=== PATIENT | female | born 1965 ===

== ENCOUNTER 2017-08-04 15:11 | Emergency (ER) | payer OTHER ==
[2017-08-04 15:23] VITALS: BMI 27.3
[2017-08-04 15:24] VITALS: RESP 18; TEMP 97.7
[2017-08-04] MEDS ORDERED: Naproxen 550 mg Tab PO STA (15:56)
[2017-08-04] MEDS ORDERED: Naproxen 550 mg Tab PO ONE (16:05)
--- NOTE | 2017-08-04 16:34 | C.PDOC ---
History Of Present Illness 51 year old female presents to the ED for evaluation of left hand pain for the last 3 days. Patient reports that pain is in same area that she had a laceration , infection, and repair 2 months ago. She states that last time she went to clinic she was told to get an MRI done but she reports that she did not follow up for MRI. She has not taken anything for pain. Time Seen by Provider: 08/04/17 15:35 Chief Complaint (Nursing): Finger,Hand,&Wrist History Per: Patient History/Exam Limitations: no limitations Onset/Duration Of Symptoms: Days Current Symptoms Are (Timing): Still Present Past Medical History Reviewed: Historical Data, Nursing Documentation, Vital Signs Vital Signs: Last Vital Signs Temp 97.7 F 08/04/17 16:52 Pulse 60 08/04/17 16:52 Resp 18 08/04/17 16:52 BP 103/67 08/04/17 16:52 Pulse Ox 97 08/04/17 16:52 - Medical History PMH: Seizures (epilepsy) Denies: Chronic Kidney Disease Family History: States: Unknown Family Hx - Social History Hx Tobacco Use: No Hx Alcohol Use: No Hx Substance Use: No - Immunization History Hx Tetanus Toxoid Vaccination: No Hx Influenza Vaccination: No Hx Pneumococcal Vaccination: No Review Of Systems Constitutional: Negative for: Fever Musculoskeletal: Positive for: Hand Pain Physical Exam - Physical Exam Appears: Non-toxic, No Acute Distress Skin: Normal Color, Warm, Dry Head: Atraumatic, Normacephalic Extremity: Normal ROM, Tenderness (left palm), No Swelling, No Other (No erythema ) Neurological/Psych: Oriented x3, Normal Speech ED Course And Treatment O2 Sat by Pulse Oximetry: 99 Medical Decision Making Medical Decision Making: Impression: hand pain Plan: * Naproxen Progress: Patient feeling better. Will discharge home for follow up with PCP. Disposition Counseled Patient/Family Regarding: Need For Followup, Rx Given - Disposition Referrals: Melanie Mccurdy MD [Staff Provider] - Disposition: HOME/ ROUTINE Disposition Time: 16:55 Condition: STABLE Additional Instructions: Por favor, tome medicamentos segn sea necesario para el dolor y prasanth un seguimiento en la clnica Prescriptions: Naproxen [Naprosyn] 1 tab PO BID PRN #25 tab PRN Reason: Pain Instructions: Arthralgia (ED) Forms: [facility] (Danish), Work Excuse - POA Present On Arrival: None - Clinical Impression Clinical Impression: Hand pain - Scribe Statement The provider has reviewed the documentation as recorded by the Scribe Ze Allred
[2017-08-04 16:53] VITALS: BP 103/67; PULSE 60
[2017-08-04 20:59] VITALS: O2SAT 99
== END 2017-08-04 17:00 | disposition home or self-care (01) ==
LOC: C.ER 15:11
DX: M79.642 Pain in left hand (principal)

== ENCOUNTER 2017-12-29 20:21 | Emergency (ER) | payer OTHER ==
[2017-12-29 20:21] VITALS: BMI 29.9
[2017-12-29 20:45] VITALS: TEMP 99.7
[2017-12-29] MEDS ORDERED: Sodium Chloride 0.9% 1,000 ML IV ONE (21:01)
[2017-12-29] MEDS ORDERED: Sodium Chloride 0.9% 1,000 ML ONE (21:14)
[2017-12-29 21:18] LABS: BASO % 0.4 % (0.0-2.0); EOS % 0.1 % (0.0-4.0); HEMOGLOBIN 13.1 g/dL (11.0-16.0); LYMPH # 1.5 K/uL (1.0-4.3); LYMPH % 20.3 % (20.0-40.0); MEAN CELL VOLUME 91.7 fL (81.0-99.0); MEAN CORPUSCULAR HEMOGLOBIN 31.2 pg (27.0-31.0); MEAN PLATELET VOLUME 8.1 fL (7.2-11.7); MONO # 0.5 K/uL (0.0-0.8); MONO % 7.2 % (0.0-10.0); NEUT # 5.3 K/uL (1.8-7.0); RBC 4.2 Mil/uL (3.80-5.20); RED CELL DISTRIBUTION WIDTH 13.5 % (11.5-14.5); WHITE BLOOD COUNT 7.3 K/uL (4.8-10.8)
[2017-12-29 21:31] LABS: ALB/GLOB RATIO 1.1 (1.0-2.1); ALT/SGPT 28 U/L (9-52); AST/SGOT 33 U/L (14-36); BLOOD UREA NITROGEN 6 mg/dL (7-17); CALCIUM 8.6 mg/dl (8.6-10.4); GFR AFRICAN-AMERICAN > 60; GFR NON-AFRICAN AMERICAN > 60; LIPASE 71 U/L (23-300)
[2017-12-29 21:36] LABS: SQUAMOUS EPITHIAL 4 /hpf (0-5); URINE BACTERIA RARE (<OCC); URINE BILIRUBIN NEGATIVE (NEGATIVE); URINE BLOOD 2+ (NEGATIVE); URINE CLARITY Hazy (Clear); URINE COLOR Yellow (YELLOW); URINE GLUCOSE (UA) NORMAL (Normal); URINE LEUKOCYTE ESTERASE 3+ Leu/uL (Negative); URINE PROTEIN 2+ mg/dL (NEGATIVE); URINE UROBILINOGEN NORMAL mg/dL (0.2-1.0)
--- NOTE | 2017-12-29 21:43 | C.PDOC ---
History Of Present Illness 52 year old female presents to the ED c/o nausea, vomit, diarrhea that started yesterday. Patient is not eating high risk foods. Patient has been taking fluids today and reports she has not vomited anymore. Patient denies fever, chills, back pain, dysuria, hematuria. Time Seen by Provider: 12/29/17 20:51 Chief Complaint (Nursing): Abdominal Pain History Per: Patient History/Exam Limitations: no limitations Onset/Duration Of Symptoms: Days Current Symptoms Are (Timing): Still Present Location Of Pain/Discomfort: Diffuse Radiation Of Pain To:: None Quality Of Discomfort: "Pain" Associated Symptoms: Nausea, Vomiting, Diarrhea Exacerbating Factors: None Alleviating Factors: None Recent travel outside of the [place]: No Additional History Per: Patient Abnormal Vaginal Bleeding: No Past Medical History Reviewed: Historical Data, Nursing Documentation, Vital Signs Vital Signs: Last Vital Signs Temp 99.7 F H 12/29/17 20:42 Pulse 77 12/29/17 20:42 Resp 14 12/29/17 20:42 BP 153/64 H 12/29/17 20:42 Pulse Ox 98 12/29/17 21:43 - Medical History PMH: Seizures (epilepsy) Denies: Chronic Kidney Disease Surgical History: No Surg Hx Family History: States: Unknown Family Hx - Social History Hx Tobacco Use: No Hx Alcohol Use: No Hx Substance Use: No - Immunization History Hx Tetanus Toxoid Vaccination: No Hx Influenza Vaccination: No Hx Pneumococcal Vaccination: No Review Of Systems Constitutional: Negative for: Fever, Chills Cardiovascular: Negative for: Chest Pain, Palpitations Respiratory: Negative for: Cough, Shortness of Breath Gastrointestinal: Positive for: Nausea, Vomiting, Diarrhea Genitourinary: Negative for: Dysuria Musculoskeletal: Negative for: Back Pain Skin: Negative for: Rash Neurological: Negative for: Weakness, Numbness Physical Exam - Physical Exam Appears: Non-toxic, No Acute Distress Skin: Normal Color, Warm, Dry Head: Atraumatic, Normacephalic Eye(s): bilateral: Normal Inspection Nose: No Discharge Oral Mucosa: Moist Neck: Normal ROM, Supple Chest: Symmetrical Cardiovascular: Rhythm Regular, No Murmur Respiratory: Normal Breath Sounds, No Rales, No Rhonchi, No Wheezing Gastrointestinal/Abdominal: Bowel Sounds (hypomotor), Soft, No Tenderness, No Guarding, No Rebound Extremity: Normal ROM, No Tenderness, No Swelling Neurological/Psych: Oriented x3 Gait: Steady ED Course And Treatment - Laboratory Results Result Diagrams: 12/29/17 21:11 12/29/17 21:11 Lab Interpretation: Normal (UA 32 WBC's) O2 Sat by Pulse Oximetry: 98 (On RA) Pulse Ox Interpretation: Normal Reevaluation Time: 21:42 Reassessment Condition: Improved Medical Decision Making Medical Decision Making: Impression: nausea, vomit, diarrhea Plan: * Labs * Pepcid 20 mg IVP * IV fluids * Toradol 30 mg IVP * Zofran 4 mg IVP * UA resolving gastroenteritis- probably viral normal labs 32 wbc's in urine without nitrites nor symptoms, will defer treating asymptomatic mild pyuria Disposition Doctor Will See Patient In The: Office Counseled Patient/Family Regarding: Studies Performed, Diagnosis - Disposition Referrals: [facility] [Outside] Disposition: HOME/ ROUTINE Disposition Time: 21:43 Condition: GOOD Additional Instructions: sigue dieta de BRAT: Bananas, arroz calixto, manzana, stevens santa, caldo de judy Tamara muchos liquidos y agua Pepcid 20 mg en la noche para bajar el acides del estomago debido al gastroenteritis Instructions: Gastroenteritis (DC) Forms: [facility] (S[place] Arabian) Print Language: ROMANIAN - Clinical Impression Clinical Impression: Gastroenteritis - Scribe Statement The provider has reviewed the documentation as recorded by the Scribe Gianni Catsle All medical record entries made by the Scribe were at my direction and personally dictated by me. I have reviewed the chart and agree that the record accurately reflects my personal performance of the history, physical exam, medical decision making, and the department course for this patient. I have also personally directed, reviewed, and agree with the discharge instructions and disposition.
[2017-12-29 21:57] VITALS: BP 105/63; PULSE 61; RESP 18; O2SAT 95
== END 2017-12-29 22:02 | disposition home or self-care (01) ==
LOC: C.ER 20:21
DX: K52.9 Noninfective gastroenteritis and colitis, unspecified (principal)
CPT/HCPCS: 80053; 81001; 83690; 85025; 96361; 96374; 96375; 99284; J1885; J2405; J7040

== ENCOUNTER 2018-02-04 10:39 | Emergency (ER) | payer OTHER ==
[2018-02-04 10:40] VITALS: BMI 29.9
[2018-02-04 10:51] VITALS: RESP 18
--- NOTE | 2018-02-04 12:30 | CT ---
PROCEDURE: CT HEAD WITHOUT CONTRAST. HISTORY: trauma COMPARISON: None available. TECHNIQUE: Axial computed tomography images were obtained through the head/brain without intravenous contrast. Radiation dose: Total exam DLP = 823.35 mGy-cm. This CT exam was performed using one or more of the following dose reduction techniques: Automated exposure control, adjustment of the mA and/or kV according to patient size, and/or use of iterative reconstruction technique. FINDINGS: HEMORRHAGE: No intracranial hemorrhage. BRAIN: Prior left frontal craniotomy noted. Postoperative cystic encephalomalacia seen at the left frontal vertex anteriorly. Trace calcifications are also seen deep to the operative site. An area of abnormal lucency is appreciated centered at the corpus callosum anteriorly and extending into the subcortical white matter of the bilateral frontal lobes is unclear were to what extent this may reflect residual or recurrent pathology. It measures 4.5 x 2.9 cm (transverse by anteroposterior dimensions). Mass effect bows the genu of the corpus callosum narrowing the distal bodies of the lateral ventricles bilaterally. No midline shift is appreciated or definitive change in sulcation. The remaining brain parenchyma appears unremarkable including the posterior fossa contents. VENTRICLES: No apparent hydrocephalus throughout. CALVARIUM: Prior left frontal craniotomy as per above. No additional destructive bony lesion or displaced fracture identified including through the skullbase. PARANASAL SINUSES: Unremarkable as visualized. No significant inflammatory changes. MASTOID AIR CELLS: Unremarkable as visualized. No inflammatory changes. OTHER FINDINGS: None. IMPRESSION: 1. No definitive posttraumatic findings intracranially including calvarial or skullbase fracture. 2. Prior left frontal craniotomy with cystic encephalomalacia involving a small segment of the left frontal lobe near the vertex. A more suspicious area of low density is appreciated measuring 4.5 cm greatest dimension involving the genu of the corpus callosum predominantly and extending into both frontal lobes and is deep to operative site appears unclear whether this reflects stable residual or recurrent disease as there is no prior comparison available this time. Limited mass-effect is appreciated on the anterior bodies of the bilateral lateral ventricles. Exam is otherwise unremarkable. Follow-up elective brain MRI is advised without contrast unless this proved to be stable and prior imaging comparison.
--- NOTE | 2018-02-04 12:51 | C.PDOC ---
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 Patient reports she had a mechanical fall today while coming down the stairs, sustaining an injury to the head after she fell at 05:00 this morning. Patient denies any loss of consciousness, nausea/vomiting, visual change, seizures, dizziness, or any other associated symptoms. Neuro Jaime Zelaya MD. 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) History/Exam Limitations: no limitations Injury Occurred (Timing): Today @ (05:00) Past Medical History Reviewed: Historical Data, Nursing Documentation, Vital Signs Vital Signs: Last Vital Signs Temp 98 F 02/04/18 13:16 Pulse 78 02/04/18 13:16 Resp 18 02/04/18 13:16 BP 123/76 02/04/18 13:16 Pulse Ox 99 02/04/18 13:25 - Medical History PMH: Seizures (epilepsy) Denies: Chronic Kidney Disease Family History: States: No Known Family Hx - Social History Hx Tobacco Use: No Hx Alcohol Use: No Hx Substance Use: No - Immunization History Hx Tetanus Toxoid Vaccination: Yes Hx Influenza Vaccination: Yes Hx Pneumococcal Vaccination: Yes Review Of Systems Respiratory: Negative for: Shortness of Breath Gastrointestinal: Negative for: Vomiting Musculoskeletal: Negative for: Neck Pain, Back Pain Neurological: Positive for: Headache. Negative for: Weakness, Numbness, Confusion, Altered Mental Status, Dizziness Physical Exam - Physical Exam Appears: Non-toxic, No Acute Distress Skin: Warm, Dry, No Rash Head: Normacephalic, No Laceration, Other ((+)contusion and swelling to left parietal scalp) Eye(s): bilateral: Normal Inspection, PERRL, EOMI Ear(s): Bilateral: Normal Nose: Normal Oral Mucosa: Moist Lips: Normal Appearing Throat: Normal, No Erythema, No Exudate Neck: Normal ROM, No Step Off Deformity Chest: Symmetrical Cardiovascular: Rhythm Regular, No Murmur Respiratory: Normal Breath Sounds, No Accessory Muscle Use Gastrointestinal/Abdominal: Soft, No Tenderness Extremity: Normal ROM, No Deformity, No Swelling Neurological/Psych: Oriented x3, Normal Speech, Normal Cognition, Normal Cranial Nerves (2-12, no focal deficits), Normal Sensation Gait: Steady ED Course And Treatment O2 Sat by Pulse Oximetry: 99 (RA) Pulse Ox Interpretation: Normal - CT Scan/US CT head Other Rad Studies (CT/US): Read By Radiologist, Radiology Report Reviewed CT/US Interpretation: Accession No. : [id number]. Patient Name / ID : BARBI KUMARI / [id number]. Exam Date : 02/04/2018 11:59:37 ( Approved ). Study Comment : Sex / Age : F / 52Y. Creator : Sushant Pal MD. Dictator : Sushant Pal MD. Grocery Department Manager : [employer] : Sushant Pal MD. Approver2 : Report Date : 02/04/2018 12:29:29. My Comment : . PROCEDURE: CT HEAD WITHOUT CONTRAST. HISTORY: trauma. COMPARISON: None available. TECHNIQUE: Axial computed tomography images were obtained through the head/brain without intravenous contrast. Radiation dose: Total exam DLP = 823.35 mGy-cm. This CT exam was performed using one or more of the following dose reduction techniques: Automated exposure control, adjustment of the mA and/or kV according to patient size, and/or use of iterative reconstruction technique. FINDINGS: HEMORRHAGE: No intracranial hemorrhage. BRAIN: Prior left frontal craniotomy noted. Postoperative cystic encephalomalacia seen at the left frontal vertex anteriorly. Trace calcifications are also seen deep to the operative site. An area of abnormal lucency is appreciated centered at the corpus callosum anteriorly and extending into the subcortical white matter of the bilateral frontal lobes is unclear were to what extent this may reflect residual or recurrent pathology. It measures 4.5 x 2.9 cm (transverse by anteroposterior dimensions). Mass effect bows the genu of the corpus callosum narrowing the distal bodies of the lateral ventricles bilaterally. No midline shift is appreciated or definitive change in sulcation. The remaining brain parenchyma appears unremarkable including the posterior fossa contents. VENTRICLES: No apparent hydrocephalus throughout. CALVARIUM: Prior left frontal craniotomy as per above. No additional destructive bony lesion or displaced fracture identified including through the skullbase. PARANASAL SINUSES: Unremarkable as visualized. No significant inflammatory changes. MASTOID AIR CELLS: Unremarkable as visualized. No inflammatory changes. OTHER FINDINGS: None. IMPRESSION: 1. No definitive posttraumatic findings intracranially including calvarial or skullbase fracture. 2. Prior left frontal craniotomy with cystic encephalomalacia involving a small segment of the left frontal lobe near the vertex. A more suspicious area of low density is appreciated measuring 4.5 cm greatest dimension involving the genu of the corpus callosum predominantly and extending into both frontal lobes and is deep to operative site appears unclear whether this reflects stable residual or recurrent disease as there is no prior comparison available this time. Limited mass-effect is appreciated on the anterior bodies of the bilateral lateral ventricles. Exam is otherwise unremarkable. Follow-up elective brain MRI is advised without contrast unless this proved to be stable and prior imaging comparison. Progress Note: CT head ordered and reviewed. Pt refused pain medicine. Patient will be discharged and instructed to f/u outpatient with neurology for MRI and given copy of CT scan. Patient instructed to return for any new or worsening symptoms. Cooker Chip used to ensure understanding. Disposition - Disposition Referrals: Jaime Zelaya MD [Staff Provider] - Disposition: HOME/ ROUTINE Disposition Time: 12:49 Condition: STABLE Additional Instructions: Show your neurologist your CT results. Vaya a herrera mdico o la clnica en 1-3 d as sin falta, para mas evaluacin. [place] los medicamentos isidro indicado. Volver a la naresh de emergencia en cualquier momento si los sntomas persisten o empeoran. Instructions: Minor Head Injury (DC) Forms: [facility] ([place] Islander) Print Language: FRISIAN - Clinical Impression Clinical Impression: Head contusion - Scribe Statement The provider has reviewed the documentation as recorded by the Scribe (Angelina Alvarez) All medical record entries made by the Scribe were at my direction and personally dictated by me. I have reviewed the chart and agree that the record accurately reflects my personal performance of the history, physical exam, medical decision making, and the department course for this patient. I have also personally directed, reviewed, and agree with the discharge instructions and disposition.
[2018-02-04 13:17] VITALS: BP 123/76; PULSE 78; TEMP 98
[2018-02-04 13:24] VITALS: O2SAT 99
== END 2018-02-04 13:17 | disposition home or self-care (01) ==
LOC: C.ER 10:39
DX: S00.03XA Contusion of scalp, initial encounter (principal); W10.9XXA Fall (on) (from) unspecified stairs and steps, initial encounter

== ENCOUNTER 2018-04-22 20:10 | Emergency (ER) | payer OTHER ==
[2018-04-22 20:10] VITALS: BMI 29.9
[2018-04-22 20:22] VITALS: RESP 18; O2SAT 100
[2018-04-22] MEDS ORDERED: Sodium Chloride 0.9% 1,000 ML IV ONE (20:32)
--- NOTE | 2018-04-22 20:34 | C.PDOC ---
History Of Present Illness 52 year old female with known seizure disorder on Keppra presents to the ER complaining of abdominal pain with associated symptoms of diarrhea, vomiting, and subjective fever. Patient denies any sick contacts at home. She admits to last PO intake of Maltese food at 1500 today. Patient reports taking Peptobismol and noted a little improvement but symptoms persisted. Time Seen by Provider: 04/22/18 20:19 Chief Complaint (Nursing): Abdominal Pain History Per: Patient History/Exam Limitations: no limitations Onset/Duration Of Symptoms: Hrs Current Symptoms Are (Timing): Still Present Context: Food Radiation Of Pain To:: None Quality Of Discomfort: Cramping Associated Symptoms: Nausea, Vomiting, Diarrhea Past Medical History Reviewed: Historical Data, Nursing Documentation, Vital Signs Vital Signs: Last Vital Signs Temp 97.7 F 04/22/18 22:28 Pulse 85 04/22/18 22:28 Resp 18 04/22/18 22:28 BP 100/63 04/22/18 22:28 Pulse Ox 100 04/22/18 22:28 - Medical History PMH: Seizures (epilepsy) Denies: Chronic Kidney Disease Surgical History: No Surg Hx Family History: States: No Known Family Hx - Social History Hx Tobacco Use: No Hx Alcohol Use: No Hx Substance Use: No - Immunization History Hx Tetanus Toxoid Vaccination: Yes Hx Influenza Vaccination: No Hx Pneumococcal Vaccination: Yes Review Of Systems Except As Marked, All Systems Reviewed And Found Negative. Constitutional: Positive for: Fever Gastrointestinal: Positive for: Nausea, Vomiting, Abdominal Pain, Diarrhea Physical Exam - Physical Exam Appears: Non-toxic, No Acute Distress Skin: Normal Color, Warm, Dry Head: Atraumatic, Normacephalic Eye(s): bilateral: Normal Inspection Oral Mucosa: Moist Lymphatic: No Adenopathy Chest: Symmetrical Cardiovascular: Rhythm Regular Respiratory: Normal Breath Sounds, No Rales, No Rhonchi, No Wheezing Gastrointestinal/Abdominal: Bowel Sounds (Active), Soft, No Tenderness, No Distention, No Guarding, Other (Vague diffused discomfort on palpation ) Neurological/Psych: Oriented x3, Normal Speech ED Course And Treatment - Laboratory Results Result Diagrams: 04/22/18 21:08 04/22/18 21:08 O2 Sat by Pulse Oximetry: 100 (RA) Pulse Ox Interpretation: Normal Medical Decision Making Medical Decision Making: Differential Dx: Food poisoning versus viral gastroenteritis Plan: - Bentyl 10mg IM - Prochlorperazine 5mg IVP - IV fluids - Labs Patient assessed and examined. Patient is not dehydrated, but IV fluids given because of the medications given. On reassessment, patient reports feeling better. Patient instructed to follow up with PMD and advised to return to ER if symptoms worsen or new symptoms arise. Disposition - Disposition Referrals: Jaime Zelaya MD [Primary Care Provider] - Disposition: HOME/ ROUTINE Disposition Time: 03:43 Condition: FAIR Prescriptions: Atropine/Diphenoxylate [Lonox 0.025 MG-2.5 MG] 1 tab PO TID PRN #12 tab PRN Reason: Diarrhea Dicyclomine [Bentyl] 20 mg PO TID PRN #12 tab PRN Reason: Pain, Mild (1-3) Instructions: Food Poisoning Forms: [facility] [facility] (Nauruan) Print Language: SALVADOREAN - Clinical Impression Clinical Impression: Food poisoning due to Bacillus cereus - Scribe Statement The provider has reviewed the documentation as recorded by the Nhungibjaime Rubalcava All medical record entries made by the Nhungibajime were at my direction and personally dictated by me. I have reviewed the chart and agree that the record accurately reflects my personal performance of the history, physical exam, medical decision making, and the department course for this patient. I have also personally directed, reviewed, and agree with the discharge instructions and disposition.
[2018-04-22] MEDS ORDERED: Sodium Chloride 0.9% 1,000 ML ONE (20:55)
[2018-04-22 21:11] LABS: BASO # 0.1 K/uL (0.0-0.2); EOS # 0.1 K/uL (0.0-0.7); EOS % 0.9 % (0.0-4.0); HEMOGLOBIN 13.2 g/dL (11.0-16.0); LYMPH # 1.7 K/uL (1.0-4.3); LYMPH % 29.2 % (20.0-40.0); MEAN CELL VOLUME 91.3 fL (81.0-99.0); MEAN CORPUSCULAR HEMOGLOBIN 31.3 pg (27.0-31.0); MEAN CORPUSCULAR HGB CONC 34.3 g/dL (33.0-37.0); MEAN PLATELET VOLUME 8.3 fL (7.2-11.7); MONO # 0.4 K/uL (0.0-0.8); MONO % 7.7 % (0.0-10.0); NEUT # 3.5 K/uL (1.8-7.0); NEUT % 61.2 % (50.0-75.0); RBC 4.2 Mil/uL (3.80-5.20); RED CELL DISTRIBUTION WIDTH 12.9 % (11.5-14.5); WHITE BLOOD COUNT 5.8 K/uL (4.8-10.8)
[2018-04-22 21:26] LABS: ALB/GLOB RATIO 1.4 (1.0-2.1); ALBUMIN 4.3 g/dL (3.5-5.0); ALT/SGPT 30 U/L (9-52); AST/SGOT 24 U/L (14-36); BLOOD UREA NITROGEN 10 mg/dL (7-17); CALCIUM 9.1 mg/dl (8.6-10.4); GFR AFRICAN-AMERICAN > 60; GFR NON-AFRICAN AMERICAN > 60; LIPASE 144 U/L (23-300)
[2018-04-22 22:30] VITALS: BP 100/63; PULSE 85; TEMP 97.7
== END 2018-04-22 22:46 | disposition home or self-care (01) ==
LOC: C.ER 20:10 → SUPCPDRO 20:10 → C.ER 22:46
DX: A05.4 Foodborne Bacillus cereus intoxication (principal)
CPT/HCPCS: 80053; 83690; 85025; 96372; 96374; 99285; J0500; J0780; J7030